=== PATIENT | male | born 1960 | race Caucasian/White ===

== ENCOUNTER 2016-12-14 07:50 | Day surgery (SDC) | payer BC, OTHER ==
--- NOTE | 2016-12-12 00:22 | HISTORY & PHYSICAL EXAMINATION ---
DATE OF ADMISSION: 12/14/2016 REASON FOR HISTORY AND PHYSICAL: Bronchoscopy. REASON FOR BRONCHOSCOPY: Chronic bronchitis as well as chronic cough. HISTORY OF PRESENT ILLNESS: The patient is a 56-year-old male, who we followed in the office since July 2015. He was last seen in the office on 09/28/2016. At that time, he did have a CAT scan of his chest which showed some interstitial changes as well as some mediastinal lymphadenopathy. He continued to have difficulty with his breathing. He states that he has shortness of breath with any type of exertion. He states that if he rests for a few minutes he will get his wind back, however, he also continues to have cough and congestion. He does cough up mucus which is very thick, it is also yellow to brown in color. He has not noticed any blood in the mucus. He reports that his concurs that he will have wheezing at times as well. Wheezing is typically when he is exerting himself. He states that he feels like he cannot get a deep breath and he states that he has been using his Advair and Spiriva as well as his family states that they may be helping a little bit, but they do not seem to be doing enough. He is a current smoker of 1-pack a day, does have a [id number] history: The patient has not had much relief with any other modalities we have tried. Last PFT was done on 06/15/2016, shows a forced vital capacity of 3.77 liters which is 81% predicted and FEV1 of 2.40 liters which is 64% predicted. FEV1 to FVC ratio of 64%, residual volume of 2.90 liters which is 128% predicted. Volume adjustment TLC 75% of predicted with a mild response to bronchodilation. The patient also underwent an overnight pulse oximetry on 09/21/2008 which did show desaturation to 78%. Also it showed that patient was at or below 88% for 5 hours and 15 minutes. The patient was started on oxygen at 2 liters per minute overnight at that time. The patient's most recent CAT scan was done on 06/15/2016. This was done at [facility], it did show increased interstitial markings and prominent mediastinal lymphadenopathy. The patient did not have any other difficulties or problems. No cardiac issues. No chest pain. No chest pressure, no palpitations, no pleuritic chest pain, no fever or chills, no night sweats, no known weight changes. No GI complaints. No nausea or vomiting, no indigestion or heartburn, no difficulty swallowing. No bowel changes, no difficulty with constipation or diarrhea. No melena or hematochezia. No difficulty voiding. No difficulty with swelling in his extremities. No numbness, tingling or weakness in his extremities. He has been taking his medications as directed. No side effects to his medications. Because of the patient's persistent symptoms as well as his mild changes on CAT scan it was elected to set him up for bronchoscopic evaluation. PAST MEDICAL HISTORY: Includes chronic bronchitis, chronic cough, dizziness, excessive daytime sleepiness, headache, hyperlipidemia, hypertension, Lyme disease, nocturnal hypoxia, shortness of breath, sleep apnea and snoring. PAST SURGICAL HISTORY: Includes cardiac catheterization and cardiac stent placement. FAMILY HISTORY: Includes cardiac disease and cancer. SOCIAL HISTORY: The patient is a current smoker with a [id number] history. CURRENT MEDICATIONS: Include Advair 500/50 one puff twice daily, Spiriva Respimat 2.5 mcg 2 puffs once daily, oxygen at 2 liters per minute, aspirin 81 mg daily, carvedilol 3.125 mg 1 tablet twice daily, Imdur 30 mg one tablet daily, nitroglycerin 0.4 mg sublingual 1 tablet under the tongue every 5 minutes as needed, Plavix 75 mg daily, Prilosec 20 mg b.i.d., Vaseretic 10/25; 1/2 tablet daily and Ventolin HFA 2 puffs q. 4 hours as needed. ALLERGIES: The patient has no known drug allergies. REVIEW OF SYSTEMS: As above, otherwise unremarkable. PHYSICAL EXAMINATION: GENERAL: The patient is 56-year-old male, in no acute distress. He is alert and oriented x3. Mood is good. Affect is good. VITAL SIGNS: Temp 98.2, respirations 20, blood pressure is 129/85, pulse ox is 98% on room air, heart rate 87 and weight is 184 pounds. HEENT: Normocephalic, atraumatic. Pupils are equal, round and react to light and accommodation. Extraocular movements are intact. [place], moist, gingival and buccal mucosa. NECK: Supple. No mass. No adenopathy or bruit. CHEST: Diminished breath sounds. He does have some wheezing expiratory in the upper airways bilaterally. No rales or rhonchi. CARDIOVASCULAR: Regular rate and rhythm. No murmurs, gallops or rubs. ABDOMEN: Soft, nontender. No guarding, rigidity or organomegaly. EXTREMITIES: No erythema or edema. NEUROLOGIC: Cranial nerves II through XII are intact. No focal deficit noted. IMPRESSION: Chronic bronchitis with chronic cough. At this point, I would like for the patient to undergo bronchoscopic evaluation for further evaluation and management. The procedure was explained to the patient and his including the risks, benefits and alternatives. He is agreeable to having it done. He is on Plavix at this time, so he will need to be off this for 5-7 days prior to the procedure. He was placed on Plavix secondary to a stent placement in May 2015, it is past the mandatory 1 year, and he would not be able to stop the medication. He is to continue the rest of medications as they are. He is to contact the office if there is any question or problem. He will be followed up after the procedure.
[~2016-12-14] VITALS: Ht 177.8 cm; Wt 84.0 kg
[2016-12-14] VITALS (12 sets, daily range): BP systolic 104–165; BP diastolic 70–104; PULSE 60–91; TEMP 36.8–37; O2SAT 92–99; Ht 177.8 cm; Wt 84.0 kg
[~2016-12-14 07:50] MED LIST: LACTATED RINGER'S 1000ML 1,000 ML IV SCH
[2016-12-14] MEDS ORDERED: FENTANYL CITRATE INJ 50 MCG/1 ML 2 ML VIAL IV ONE ×2 (07:51→11:15)
[2016-12-14] MEDS ORDERED: LIDOCAINE HCL 2% LOCAL 50ML VIAL INFIL ONE (07:51)
[2016-12-14] MEDS ORDERED: LIDOCAINE 4% W/AFRIN NASAL SOLN 4ML ONE (07:51)
[2016-12-14] MEDS ORDERED: MIDAZOLAM HCL 5 MG/ML 1 ML VIAL IV ONE ×2 (07:51→11:15)
[2016-12-14] MEDS ORDERED: LEVALBUTEROL 1.25MG/3ML NEB INH ONE (07:51)
[2016-12-14] MEDS ORDERED: CLOP1TAB15 PO (08:45)
[2016-12-14] MEDS ORDERED: ASPI81TA28 PO (08:45)
[2016-12-14] MEDS ORDERED: ENAL10TA88 PO (08:46)
[2016-12-14] MEDS ORDERED: PRLSR20 PO (08:47)
[2016-12-14] MEDS ORDERED: ROSU20TA PO (08:47)
[2016-12-14] MEDS ORDERED: CARV3.122 PO (08:47)
[2016-12-14] MEDS ORDERED: ISOS30TA3 PO (08:49)
[2016-12-14] MEDS ORDERED: DIPH-437 PO (08:50)
[2016-12-14] MEDS ORDERED: ACET1TAB84 PO (08:50)
[2016-12-14] MEDS ORDERED: respimat PO (08:53)
--- NOTE | 2016-12-14 09:11 | History & Physical Bridge Note ---
H&P Re-Evaluation Bridge Note: I have examined the patient, reviewed the History & Physical and in the interval since the performance of the History & Physical I have noted the following changes of clinical significance: No changes noted
--- NOTE | 2016-12-14 09:11 | Procedure Note ---
Pre-Mod Sedation Assessment General Date of Moderate Sedation: Dec 14, 2016. Pre-Sedation Airway Assessment Mallampati Classification: Class I ASA Classification: Class I Procedure Planning Contraindications-for Mod Sed: None Yes Notes The planned sedation has been discussed with the patient and consent obtained. I have identified the patient, determined the appropriateness of sedation and have assessed the patient immediately prior to the procedure. All medicine(s) and interventions are by my order.
[2016-12-14] MEDS ORDERED: NURSING VERBAL MED ORDER ONE ×2 (10:30→11:00)
--- NOTE | 2016-12-14 11:33 | Discharge Instructions ---
Discharge Instructions Admission Reason for Admission: Chronic Cough,Sob Discharge Discharge Diagnosis / Problem: Chronic Cough, Sob Discharge Goals Goal(s): Diagnostic testing Activity Recommendations Activity Limitations: resume your previous activity . Instructions / Follow-Up Instructions / Follow-Up ACTIVITY RECOMMENDATIONS: * Rest today, resume normal activity tomorrow. * Do not drive today. SPECIAL CARE INSTRUCTIONS: * Call your physician if you experience any chest or shoulder pain, fever, coughing, spitting up blood (more than 2 teaspoons) or excessive shortness of breath. * Remove dressing from IV site (where needle was placed into the vein) after 2 hours. Apply a warm, moist compress to site if irritation occurs. Call physician if site becomes red or painful to touch. * You may eat 4 hours after the completion of your procedure * Resume all usual medications as previously directed FOLLOW UP VISIT: * Keep any scheduled doctor appointments. Current Hospital Diet Patient's current hospital diet: Discharge Diet Recommended Diet: Regular Diet Pending Studies Studies pending at discharge: yes List of pending studies: Bronchoscopy washings Medical Emergencies . Who to Call and When: Medical Emergencies: If at any time you feel your situation is an emergency, please call 911 immediately. . Non-Emergent Contact Non-Emergency issues call your: Primary Care Provider . . "Provider Documentation" section prepared by Ruben Prescott PA-C. VTE Core Measure Inpt VTE Proph given/why not?: Treatment not indicated (Same day procedure)
--- NOTE | 2016-12-14 12:01 | OPERATIVE REPORT ---
DATE OF OPERATION: 12/14/2016 PROCEDURE: Fiberoptic bronchoscopy with bronchoalveolar lavage. INDICATIONS: Chronic cough in a chronic smoker with progressive interstitial and chronic obstructive lung disease. ANESTHESIA PREOPERATIVELY: None. ANESTHESIA DURING PROCEDURE: 5 mg IV Versed, 50 mcg IV fentanyl, 20 mL 2% Xylocaine spray above and below the cords, 4% viscous Xylocaine intranasally. DESCRIPTION OF PROCEDURE: Fiberoptic bronchoscopy was inserted through the right naris with minimal difficulty and passed to the level of the true vocal cords. The cords appeared to approximate normally with phonation without evidence of lesions or paralysis. The scope was then introduced in the right and left tracheobronchial tree. The len was sharp. The right main stem bronchus was free of endobronchial lesions. Chronic bronchitic changes were clearly evident throughout the right tracheobronchial tree with bronchial crypts and clefts seen and mucous pitting prominently displayed. The right main stem bronchus was free of endobronchial lesions. Right upper lobe, the apical posterior, anterior segments, bronchus intermedius, right middle lobe, medial lateral segments and all basilar segments right lower lobe were found to be free of endobronchial lesions. Left tracheobronchial tree was explored and similar findings were noted, left upper lobe, lingular subdivision and left lower lobe were free of endobronchial lesions with each lobar and segmental bronchus copiously lavaged with normosol and the aspirate sent for appropriate studies. No brushings or biopsies were deemed necessary. Moderate to severe chronic inflammatory mucosal change was seen throughout the right and left tracheobronchial tree. The procedure was terminated. No brushings or biopsies were obtained. Fluoroscopy was not utilized. The procedure was terminated. The patient was given nebulizer treatment with Xopenex 1.25 mg and then transferred to the medical treatment unit hemodynamically stable with no signs of respiratory compromise. Will await microbiological and cytologic examination of the bronchial washings. I attest to the content of the Intraoperative Record and any orders documented therein. Any exceptio ns are noted below.
[2016-12-16 10:55] LABS: HERPES SIMPLEX CULT SOURCE OTHER-RLL BRONCH WAS; HERPES SIMPLEX VIRUS CULT NOT ISOLATED (NOT ISOLATED)
== END 2016-12-14 13:03 | disposition home or self-care (01) ==
LOC: C.ACU 07:50
PROVIDERS: ATTEND Internal Medicine Pulmonary Disease
DX: J42 Unspecified chronic bronchitis (principal); R05 Cough; J44.9 Chronic obstructive pulmonary disease, unspecified; I10 Essential (primary) hypertension; G47.30 Sleep apnea, unspecified; E78.5 Hyperlipidemia, unspecified; F17.210 Nicotine dependence, cigarettes, uncomplicated